=== PATIENT | male | born 1995 | race Caucasian/White ===

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

== ENCOUNTER 2017-04-26 17:26 | Emergency (ER) | payer OTHER ==
[~2017-04-26] VITALS: Ht 190.5 cm; Wt 91.4 kg
[~2017-04-26 17:26] MED LIST: MOTRIN800 MG PO; ZOFRAN ODT4 MG PO
[2017-04-26] MEDS ORDERED: KEFLEX500 MG PO (18:49)
[2017-04-26 19:00] VITALS: BP 125/78
== END 2017-04-26 19:01 | disposition home or self-care (01) ==
LOC: EME 17:26
DX: L03.316 Cellulitis of umbilicus (principal); Z98.890 Other specified postprocedural states; K59.00 Constipation, unspecified; F17.200 Nicotine dependence, unspecified, uncomplicated
CPT/HCPCS: 99281; 99283